=== PATIENT | male | born 1955 | race Caucasian/White ===

== ENCOUNTER 2017-09-03 21:16 | Emergency (ER) | payer MEDICAID, MEDICARE ==
[2017-09-03 21:25] VITALS: BMI 32.5
[2017-09-03 21:47] VITALS: RESP 17; O2SAT 98
--- NOTE | 2017-09-03 22:01 | ED PDOC ---
Arrival/HPI - General Chief Complaint: Headache Time Seen by Provider: 09/03/17 21:26 Historian: Patient, Family (son) EM Caveat: Acuity of Condition - History of Present Illness Narrative History of Present Illness (Text): 09/03/17 21:56 Pt is a 62 yo male with HTN, DMII and hypothyroidism, was brought in by his son for intense left side head and neck pain over the past day. Pt said he went to bed with only a slight pain in his neck then awoke the next day with the pain much worse. He was not able to turn his head without feeling pain in the neck and left shoulder. His son says that he has been under a lot of stress due to a family member dying and a planned trip to [place] soon. Denies chest pain, sob, nausea, vomiting, diarrhea, fever, change in vision, loss of motor control and numbness. Pt took 800 mg of ibuprofen 2 hours before coming to the ER. 09/03/17 22:17 Time/Duration: 24 hours Symptom Onset: Sudden Symptom Course: Unchanged, Worsening Quality: Aching, Pressure, Tightness Severity Level: Moderate Activities at Onset: Rest, Sleeping Context: Work Past Medical History - Provider Review Nursing Documentation Reviewed: Yes - Travel History Have you recently traveled outside [place] w/in the past 3 mons?: No - Infectious Disease Hx of Infectious Diseases: None - Cardiac Hx Cardiac Disorders: Yes Hx Hypertension: Yes - Pulmonary Hx Respiratory Disorders: No - Neurological Hx Neurological Disorder: No - HEENT Hx HEENT Disorder: No - Renal Hx Renal Disorder: No - Endocrine/Metabolic Hx Endocrine Disorders: Yes Hx Diabetes Mellitus Type 2: Yes Hx Hypothyroidism: Yes - Hematological/Oncological Hx Blood Transfusions: No Hx Blood Transfusion Reaction: No - Integumentary Hx Dermatological Disorder: No - Musculoskeletal/Rheumatological Hx Musculoskeletal Disorders: No - Gastrointestinal Hx Gall Bladder Disease: Yes - Genitourinary/Gynecological Hx Genitourinary Disorders: No - Psychiatric Hx Emotional Abuse: No Hx Physical Abuse: No Hx Substance Use: No - Past Surgical History Past Surgical History: No Previous - Surgical History Hx Cholecystectomy: Yes - Anesthesia Hx Anesthesia Reactions: No Hx Malignant Hyperthermia: No - Suicidal Assessment Feels Threatened In Home Enviroment: No Family/Social History - Physician Review Nursing Documentation Reviewed: Yes Family/Social History: Unknown Family HX Smoking Status: Never Smoked Hx Alcohol Use: Yes (SOCIALLY) Hx Substance Use: No Hx Substance Use Treatment: No Allergies/Home Meds Allergies/Adverse Reactions: Allergies No Known Allergies Allergy (Verified 09/03/17 21:29) Home Medications: Home Meds Medication Instructions Recorded Confirmed Aspirin [Ecotrin] 81 mg PO DAILY 09/03/17 09/03/17 Atenolol [Tenormin] 100 mg PO DAILY 09/03/17 09/03/17 Atorvastatin Calcium 10 mg PO DAILY 09/03/17 09/03/17 Levothyroxine Sodium [Levoxyl] 125 mcg PO DAILY 09/03/17 09/03/17 Pioglitazone HCl 30 mg PO DAILY 09/03/17 09/03/17 Sitagliptin Phos/Metformin HCl 1 ter PO BID 09/03/17 09/03/17 [Janumet Xr 1000 mg-50 mg] Review of Systems - Review of Systems Systems not reviewed;Unavailable: Acuity of Condition Constitutional: Fatigue Eyes: Normal ENT: Normal Respiratory: Normal Cardiovascular: Normal Gastrointestinal: Normal Genitourinary Male: Normal Musculoskeletal: Neck Pain Skin: Normal Neurological: Normal Endocrine: Normal Hemo/Lymphatic: Normal Psychiatric: Normal Physical Exam Vital Signs Reviewed: Yes Vital Signs Temp Pulse Resp BP Pulse Ox 09/04/17 00:23 98.0 F 62 17 120/62 98 09/03/17 23:55 62 17 120/62 98 09/03/17 21:42 97.8 F 72 17 155/84 H 98 Temperature: Afebrile Blood Pressure: Normal Pulse: Regular Respiratory Rate: Normal Appearance: Positive for: Uncomfortable Pain Distress: Moderate Mental Status: Positive for: Alert and Oriented X 3 Finger Stick Blood Glucose: 150 - Systems Exam Head: Present: Atraumatic, Normocephalic Pupils: Present: PERRL Extroacular Muscles: Present: EOMI Conjunctiva: Present: Normal Mouth: Present: Moist Mucous Membranes Neck: Present: Normal Range of Motion Respiratory/Chest: Present: Clear to Auscultation, Good Air Exchange. No: Respiratory Distress, Accessory Muscle Use Cardiovascular: Present: Regular Rate and Rhythm, Normal S1, S2. No: Murmurs Abdomen: Present: Normal Bowel Sounds. No: Tenderness, Distention, Peritoneal Signs Back: Present: Normal Inspection Upper Extremity: Present: Normal Inspection, Normal ROM (cervical limited in all planes), Tenderness (point tender along the levator scapulae and cervical parapsinals left side), Neurovascularly Intact. No: Cyanosis, Edema Lower Extremity: Present: Normal Inspection. No: Edema Neurological: Present: GCS=15, CN II-XII Intact, Speech Normal, Motor Func Grossly Intact, Normal Sensory Function, Gait Normal Skin: Present: Warm, Dry, Normal Color. No: Rashes Psychiatric: Present: Alert, Oriented x 3, Normal Insight, Normal Concentration Medical Decision Making ED Course and Treatment: 09/03/17 22:01 Pt is a 62 yo male with HTN, DMII and hypothyroidism, was brought in by his son for intense left side head and neck pain over the past day. Plan Head CT pain management muscle relaxant Progress Note EXAM: CT Head Without Intravenous Contrast CLINICAL HISTORY: 62 years old, male; Pain; Other: Pain in back of head and neck; Additional info : AMS TECHNIQUE: Axial computed tomography images of the head/brain without intravenous contrast. All CT scans at this facility use one or more dose reduction techniques, viz.: automated exposure control; ma/kV adjustment per patient size (including targeted exams where dose is matched to indication; i.e. head); or iterative reconstruction technique. Coronal and sagittal reformatted images were created and reviewed. COMPARISON: No relevant prior studies available. FINDINGS: Brain: Mild atrophy. No intracranial hemorrhage. No mass. Few scattered foci of decreased attenuation within periventricular/subcortical white matter. No definite edema. Ventricles: No hydrocephalus. Bones/joints: No acute fracture. Soft tissues: Unremarkable. Sinuses: No acute sinusitis. Mastoid air cells: No mastoid effusion. Orbits: Unremarkable as visualized. IMPRESSION: 1. Nonspecific white matter changes. Acute infarction may be CT occult within first 24 hours. If a focal deficit persists, consider followup CT or MRI for further evaluation. 2. Incidental/non-acute findings are described above Patient still in pain; will go ahead with Toradol injection 60 mg IM Dispo home on cyclobenzaprine; STAT Flexeril given Advised pt to f/u with PMD and take note of any neurological deficits he might have VSS, Pt was driven home by son 09/04/17 01:19 - Lab Interpretations Lab Results: Lab Results 09/03/17 21:32: POC Glucose (mg/dL) 150 H - RAD Interpretation Radiology Orders: 09/03/17 21:53 HEAD W/O CONTRAST [CT] Stat - Medication Orders Current Medication Orders: Discontinued Medications Acetaminophen (Tylenol 325mg Tab) 975 mg PO STAT STA Stop: 09/03/17 22:07 Last Admin: 09/03/17 22:20 Dose: 975 mg MAR Pain/Vitals Document 09/03/17 22:20 IT (Rec: 09/03/17 22:21 IT [id number]) Pain Reassessment Is This A Pain ReAssessment? No Sleep Is patient sleeping during reassessment? No Presence of Pain Presence of Pain Yes Pain Scale Used Pain Scale Used Numeric Cyclobenzaprine HCl (Flexeril) 10 mg PO STAT STA Stop: 09/04/17 00:19 Last Admin: 09/04/17 00:22 Dose: 10 mg Ketorolac Tromethamine (Toradol) 60 mg IM STAT STA Stop: 09/03/17 23:44 Last Admin: 09/03/17 23:52 Dose: 60 mg MAR Pain Assessment Document 09/03/17 23:52 IT (Rec: 09/03/17 23:52 IT [id number]) Pain Reassessment Is this a pain reassessment? No Sleep Is patient sleeping during reassessment? No Presence of Pain Presence of Pain Yes Pain Scale Used Pain Scale Used Numeric Location Left, Right or Bilateral Left Upper or Lower Upper Pain Location Body Site Neck IM Administration Charges Document 09/03/17 23:52 IT (Rec: 09/03/17 23:52 IT [id number]) Charges for Administration # of IM Administrations 1 Disposition/Present on Arrival - Present on Arrival Any Indicators Present on Arrival: No History of DVT/PE: No History of Uncontrolled Diabetes: No Urinary Catheter: No History of Decub. Ulcer: No History Surgical Site Infection Following: None - Disposition Have Diagnosis and Disposition been Completed?: Yes Diagnosis: Cervicalgia Disposition: HOME/ ROUTINE Disposition Time: 23:43 Patient Plan: Discharge Condition: STABLE Discharge Instructions (ExitCare): Tension Headache (ED) Additional Instructions: Vinay Valiente, Please follow up with your doctor in the next 2 days to evaluate your head and neck pain. Should you experience worsening pain or other alarming symptoms, return to the ER immediately. Please use caution when taking cyclobenzaprine as it may make you very drowsy; do not drive. All the best in your recovery Prescriptions: Cyclobenzaprine [Flexeril] 10 mg PO Q12 5 Days #10 tab Referrals: Steffanie Loyola MD [Primary Care Provider] - Follow up with primary Forms: [employer] (Kyr[place]z)
--- NOTE | 2017-09-03 23:29 | CT ---
EXAM: CT Head Without Intravenous Contrast CLINICAL HISTORY: 62 years old, male; Pain; Other: Pain in back of head and neck; Additional info: AMS TECHNIQUE: Axial computed tomography images of the head/brain without intravenous contrast. All CT scans at this facility use one or more dose reduction techniques, viz.: automated exposure control; ma/kV adjustment per patient size (including targeted exams where dose is matched to indication; i.e. head); or iterative reconstruction technique. Coronal and sagittal reformatted images were created and reviewed. COMPARISON: No relevant prior studies available. FINDINGS: Brain: Mild atrophy. No intracranial hemorrhage. No mass. Few scattered foci of decreased attenuation within periventricular/subcortical white matter. No definite edema. Ventricles: No hydrocephalus. Bones/joints: No acute fracture. Soft tissues: Unremarkable. Sinuses: No acute sinusitis. Mastoid air cells: No mastoid effusion. Orbits: Unremarkable as visualized. IMPRESSION: 1. Nonspecific white matter changes. Acute infarction may be CT occult within first 24 hours. If a focal deficit persists, consider followup CT or MRI for further evaluation. 2. Incidental/non-acute findings are described above.
[2017-09-03 23:56] VITALS: BP 120/62; PULSE 62
[2017-09-04 00:25] VITALS: TEMP 98
== END 2017-09-04 00:25 | disposition home or self-care (01) ==
LOC: ED 21:16
DX: M54.2 Cervicalgia (principal); I10 Essential (primary) hypertension; E11.9 Type 2 diabetes mellitus without complications
CPT/HCPCS: 70450; 82948; 96372; 99285; J1885